=== PATIENT | female | born 1955 | race Caucasian/White ===

== ENCOUNTER 2018-06-09 07:30 | Day surgery (SDC) | payer OTHER, SELFPAY ==
[2018-06-09] VITALS (8 sets, daily range): BP systolic 107–141; BP diastolic 60–79; PULSE 61–79; RESP 14–18; TEMP 36.3–36.6; O2SAT 93–99; BMI 39.1
--- NOTE | 2018-06-09 | PATH_ITS ---
[facility] Accession Number: [id number] . 01 Material submitted: . ASCENDING COLON POLYP AT 80CM . 02 Diagnosis: Ascending Colon, Polyp At 80 CM, Biopsy: Tubular adenoma. [facility]/06/11/2018 . 02 Electronically signed: . Rosmery Isabel MD, Pathologist NPI- [id number] . 01 Gross description: . ASCENDING COLON POLYP AT 80CM: Received in formalin is 1 fragment(s) of lemus, soft tissue measuring 0.8 x 0.4 x 0.3 cm submitted entirely in 1 cassette(s) /CKI /CKI . 02 Pathologist provided ICD-10: D12.2 . 02 CPT . 705220 Performed at: 01 [facility] [address] [place] [address], [place], [place] [id number] MD Ramo Kaur MD Phone: [phone] Performed at: 02 [facility] [place] [address] [place], [place] [id number] MD Rosmery Isabel MD Phone: [phone]
[2018-06-09] MEDS: SODIUM CHLORIDE 0.9% 1,000 ML 200 ML IV (08:15)
--- NOTE | 2018-06-09 08:20 | PM.PREOP ---
Pre-operative Note Interval Note History & Physical reviewed/Exam performed by Physician: Yes Changes to H&P: No H&P completed within 30 days and has changed as indicated here:: Patient seen and examined today. History and physical examination placed on the chart today. Obviously there have been no changes within the last 15 min. Proceed with colonoscopy today as planned. ASA Class (for procedural sedation): II
--- NOTE | 2018-06-09 08:21 | P.HP_ITS ---
History of Present Illness Date Patient Seen: 06/09/18 Time Patient Seen: 08:16 Chief complaint: [id number] SCREENING COLONOSCOPY Narrative: 62-year-old female with family history of colon cancer in her mother who presents for colorectal screening. Her last examination was approximately 6 years ago. She reports that was normal at that time. Recently she has been having more frequent soft bowel movements but no other symptoms. Denies any nausea, vomiting, abdominal pain, unintended weight loss, anorexia, constipation , melena, hematochezia, or bright red blood per rectum. Patient History Medical History Asthma (Acute) Benign atrial arrhythmia (Acute) Benign heart murmur (Acute) Depression (Acute) Family history of colon cancer in mother (Acute) Gastroesophageal reflux disease (Acute) Hypothyroidism (Acute) Obesity (Acute) Obstructive sleep apnea (Acute) Psoriasis (Acute) Surgical History History of cataract removal with insertion of prosthetic lens (Acute) History of colonoscopy (Acute) Hx of rectal sphincterotomy (Acute) Family & Social History Family History: Reviewed 06/09/18 by Juan Daniel Mensah MD Social History: household members spouse Meds Allergies Allergy/AdvReac Type Severity Reaction Status Date / Time Cephalosporins Allergy Unknown Unverified 08/28/17 11:53 [CEPHALOSPORINS] thimerosal AdvReac Verified 06/09/18 08:02 Review of Systems Review of Systems All systems reviewed & are unremarkable except as noted in HPI and below Exam Vital Signs (past 8 hours): - 06/09/18 07:52 Temperature 97.5 F L Pulse Rate 79 Respiratory Rate 15 Blood Pressure 141/79 H Pulse Oximetry 94 Oxygen Delivery Method Room Air Narrative Exam Narrative: Well-nourished well-developed obese female in no acute distress. Alert oriented x3 Sclera nonicteric Regular rate and rhythm currently. Slight grade 2 murmur but no gallops or rubs. Abdomen soft, nondistended, nontender, no masses Extremities show no clubbing or cyanosis Objective Labs Labs: No recent laboratory or radiographic studies for review Assessment & Plan Plan: Assessment/Plan Narrative: 62-year-old female with family history of colorectal cancer. Her last examination was approximately 6 years ago. She presents now with some mild recent change in bowel habits as well. She requires surveillance for colorectal neoplasia. I have recommended colonoscopy. Technical details of the procedure were discussed. Risks, benefits, alternatives were explained. Risks including but not limited to sedation, aspiration, bleeding, pain, missed lesion, incomplete examination, need for further radiographic studies, colonic perforation, need for major abdominal surgery, and all attendant risks of major surgery were explained in detail. All questions were answered to her satisfaction, and she voiced understanding. Consent was placed on the chart. We will proceed as above.
[2018-06-09] MEDS: MIDAZOLAM 5 MG/5 ML VIAL IV (08:46)
[2018-06-09] MEDS: fentaNYL 250 MCG/5 ML INJ IV (08:46)
--- NOTE | 2018-06-09 08:51 | PM.OP.ENDO ---
Operative Date/Time/Diagnoses Date of procedure: 06/09/18 Time of procedure: 08:51 Pre-op diagnosis: Family history of colon cancer and recent change in bowel habits Post-op diagnosis: other (Diverticulosis and right colon polyp) Procedure & Clinicians Study performed: 1. Sedation per surgeon 2. Colonoscopy with hot snare polypectomy Same procedure as scheduled: Yes Indications: 62-year-old female with family history of colon cancer in her mother whose last colonoscopy was 6 years ago approximately. She recently developed change in bowel habits with more frequent soft stool. She requires colorectal screening for possible neoplasia. Colonoscopy is recommended. Surgeon: Juan Daniel Mensah Procedure Notes SCOAP/Timeout: Yes Procedure in detail: After obtaining informed consent, the patient was brought to the GI suite and placed in the left lateral decubitus position on the examination table. After placement of appropriate monitors, the patient was given incremental doses of Versed and Fentanyl until an appropriate level of sedation was achieved. A time out was held per SCOAP protocol. A digital rectal examination was performed and did not reveal any masses or obstructing lesions. The colonoscope was gently passed into the patient's anus and the entire colon navigated to the level of the cecum with minimal difficulty. Terminal ileum was intubated and noted to be grossly normal. Once in the cecum, the scope was withdrawn being sure to go before and beyond all mucosal folds and prominences and get an excellent examination. The findings are noted above. At the level of the rectal vault, the scope was retroflexed and the internal anal canal was examined. The scope was straightened and air aspirated from the colon. The instrument was removed from the patient's body and the procedure was concluded. The patient was allowed to awaken from sedation without difficulty and taken to the post-anesthesia care unit in good condition. Scope withdrawal time: 9:13 min Sedation minutes: 24 Findings: diverticulosis, internal hemorrhoids (Single grade 2 hemorrhoid without inflammation) and polyp Specimen(s): other (Right colon polyp at 80 cm) Complications: none Recommendations: Colonscopy in 5 years, High fiber diet, Will call with biopsy results and Other recommendation (Would recommend next colonoscopy potentially with propofol and anesthesiology services as patient was difficult to sedate in context of sleep apnea) Plan for aftercare: 1. Discharge home Follow up: as needed Disposition: PACU
== END 2018-06-09 10:02 | disposition home or self-care (01) ==
PROVIDERS: Family Provider Family Medicine; PCP Family Medicine; Visit Provider Surgery
PROC: 0DJD8ZZ Inspection of Lower Intestinal Tract, Via Natural or Artificial Opening Endoscopic (ICD-10-PCS; CPT 45378; principal; 2018-06-09 08:45)
DX: D12.2 Benign neoplasm of ascending colon (principal); Z80.0 Family history of malignant neoplasm of digestive organs; K57.30 Diverticulosis of large intestine without perforation or abscess without bleeding; K64.1 Second degree hemorrhoids; J45.909 Unspecified asthma, uncomplicated; I49.9 Cardiac arrhythmia, unspecified; R01.0 Benign and innocent cardiac murmurs; E03.9 Hypothyroidism, unspecified; E66.9 Obesity, unspecified; G47.33 Obstructive sleep apnea (adult) (pediatric)
CPT/HCPCS: 45385; 99152; 99153; J2250; J3010

== ENCOUNTER → 2018-08-11 11:55 | Outpatient (CLI) | payer OTHER, SELFPAY ==
--- NOTE | 2018-08-11 | DI.MG.S_ITS ---
BILATERAL DIGITAL SCREENING MAMMOGRAM 3D/2D WITH CAD: 08/11/2018 CLINICAL: Routine screening. Family history of breast cancer. Comparison is made to exams dated: 07/17/2017 mammogram, 03/26/2016 mammogram, 05/17/2014 mammogram, and 05/11/2013 mammogram - [facility]. There are scattered fibroglandular elements in both breasts. Current study was also evaluated with a Computer Aided Detection (CAD) system. No significant masses, calcifications, or other findings are seen in either breast. There has been no significant interval change. IMPRESSION: NEGATIVE There is no mammographic evidence of malignancy. A 1 year screening mammogram is recommended. This exam was interpreted at Station ID: [id number]. NOTE: For mammograms, a report in lay terms will be sent to the patient. Approximately 15% of breast malignancies will not be visualized mammographically. In the management of a palpable breast mass, a negative mammogram must not discourage biopsy of a clinically suspicious lesion. Electronically Signed By: Ryan henderson/valentín:08/11/2018 17:47:48 letter sent: Normal Exam ACR BI-RADS Category 1: Negative [id number]
== END ==
PROVIDERS: PCP Family Medicine; Visit Provider Family Medicine
DX: Z12.31 Encounter for screening mammogram for malignant neoplasm of breast (principal); Z80.3 Family history of malignant neoplasm of breast
CPT/HCPCS: 77063; 77067

== ENCOUNTER → 2018-10-06 06:40 | Outpatient (CLI) | payer OTHER, SELFPAY ==
--- NOTE | 2018-10-06 | DI.ECHO.S_ITS ---
[facility] +---------+ : : [address] : : : : [id number] : : : : Phone: [phone]+ Echocardiogram Report + + :Name: JEANNA MADERA Study Date: 10/06/2018 Height: 68 in : :[facility] Location: [facility] Weight: 256 lb : : Gender: Female BSA: 2.3 m2 : :: 1955 Age: 62 yrs BP: 120/80 mmHg: :Reason For Study: Mitral Valve- Regurgitation : :Ordering Physician: : :Ivette Glass Performed By: Radha Page : + + Interpretation Summary -Overall this echo shows mild, posteriorly directed mitral regurgitation, possibly secondary to minimal prolapse of the anterior leaflet. This is of no hemodynamic consequences. -Normal left ventricular ejection fraction. -Normal right ventricular size and systolic function. -No other significant valvular abnormalities. -PA pressures could not be measured but the CVP is estimated to be 3 mmHg. -Please note that patient was bradycardic during this exam with either sinus arrhythmia or occasional PACs which is difficult to determine based on this exam. Clinical correlation is recommended. This appears to be have been present on the prior echo as well. -Comparison is made to the prior echo on 06/04/2016. There is no significant change. Procedure: A two-dimensional transthoracic echocardiogram with color flow and Doppler was performed. The study quality was technically adequate. Comparison is made with the echocardiogram of 06/04/2016. The heart rate ranged between 43-71 bpm during the study. Left Ventricle: There is normal left ventricular wall thickness. The left ventricle is normal in size. LVEDD 5.5 cm, LVESD 2.9cm. The ejection fraction is estimated to be 55-60%. This is unchanged compared to the previous study. There are no focal wall motion abnormalities. Diastolic function could not be accurately assessed due to contradictory data. Although the Doppler data suggests normal diastolic function, left atrial size is moderately enlarged. This could indicate a previously elevated left atrial pressure but at this point the Doppler data suggests normal filling pressures. Right Ventricle: The right ventricle is normal in size and function. The right ventricular systolic function is normal. Atria: The left atrium is moderately dilated. The right atrium is mildly dilated. There is no Doppler evidence for an interatrial shunt. Mitral Valve: The mitral valve leaflets appear mildly thickened, but open well. There is mild mitral regurgitation. Aortic Valve: The aortic valve is trileaflet. The aortic valve opens well. No aortic regurgitation is present. Tricuspid Valve: The tricuspid valve is normal in structure and function. There is a trace or physiologic amount of tricuspid regurgitation. Pulmonary artery pressures cannot be estimated because of the lack of a measurable TR jet velocity. Pulmonic Valve: The pulmonic valve is not well visualized. There is a trace or physiologic amount of pulmonic regurgitation. Great Vessels: The aortic root is normal size. The ascending aorta is mildly enlarged. The pulmonary artery is not well visualized, but is probably normal size. The IVC is dilated (diameter is greater than 2.1 cm) yet it collapses greater than 50% with a sniff. This suggests a right atrial pressure of 8 mm Hg. Pericardium/ Pleura There is no pericardial effusion. There is no pleural effusion. MMode/2D Measurements & Calculations LVIDd: 5.5 cm Ao root diam: 3.5 cm LVIDs: 2.9 cm asc Aorta Diam: 3.8 cm FS: 46.8 % EPSS: 0.11 cm IVSd: 0.54 cm LVPWd: 0.67 cm LV knutson. diameter/BSA (cm/m^2): 2.4 LV sys. diameter/BSA (cm/m^2): 1.3 LA A2 area: 25.5 cm2 RA long axis: 5.9 cm LA A4 area: 27.0 cm2 RA area: 21.3 cm2 LA length (vol): 6.1 cm RA vol: 65.4 ml LA vol: 95.8 ml RA : 28.8 ml/m2 LA vol index: 42.2 ml/m2 IVC diam: 2.3 cm RVD1 (basal): 4.6 cm LVAd ap2: 29.6 cm2 TAPSE: 1.9 cm LVLd ap2: 6.6 cm LVAs ap2: 16.7 cm2 LVLs ap2: 6.1 cm Doppler Measurements & Calculations Ao V2 max: 138.2 cm/sec LVOT Max Nnamdi: 79.0 cm/sec Ao V2 mean: 94.3 cm/sec LV V1 max P.5 mmHg Ao max P.6 mmHg LV V1 VTI: 20.2 cm Ao mean P.0 mmHg sev ratio: 0.62 Ao V2 VTI: 32.5 cm MV E max nnamdi: 77.9 cm/sec PA V2 max: 75.8 cm/sec MV A max nnamdi: 42.5 cm/sec PA V2 mean: 54.1 cm/sec MV E/A: 1.8 PA mean P.3 mmHg Med Peak E' Nnamdi: 9.5 cm/sec PA Accel Time: 0.14 sec E/E' med: 8.2 Lat Peak E' Nnamdi: 8.9 cm/sec E/E' lat: 8.7 E/e' average: 8.4 MV dec time: 0.26 sec MV P1/2t: 75.6 msec MV P1/2t max nnamdi: 78.7 cm/sec MVA(P1/2t): 2.9 cm2 Electronically signed by: Dwight Rodriguez M.D. on Reading Physician:10/06/2018 09:46 AM
== END ==
PROVIDERS: PCP Family Medicine; Visit Provider Family Medicine
DX: I34.0 Nonrheumatic mitral (valve) insufficiency (principal); I77.89 Other specified disorders of arteries and arterioles
CPT/HCPCS: 93306

== ENCOUNTER 2018-10-17 09:44 | Outpatient (RCR) | payer OTHER, SELFPAY ==
--- NOTE | 2018-10-17 16:00 | PT.OIE ---
Current Diagnoses Benign paroxysmal vertigo, bilateral (10/17/18) Past Medical History (Last Reviewed 06/09/18 @ 08:18 by Juan Daniel Mensah MD) Asthma (Acute) Benign atrial arrhythmia (Acute) Benign heart murmur (Acute) Depression (Acute) Family history of colon cancer in mother (Acute) Gastroesophageal reflux disease (Acute) Hypothyroidism (Acute) Obesity (Acute) Obstructive sleep apnea (Acute) Psoriasis (Acute) Past Surgical History (Last Reviewed 06/09/18 @ 08:18 by Juan Daniel Mensah MD) History of cataract removal with insertion of prosthetic lens (Acute) History of colonoscopy (Acute) Hx of rectal sphincterotomy (Acute) Provider Visit Care Team Role Provider Type Ivette Glass MD Attending Provider Physician Primary Care Provider Specialty: Family Practice Address: [address] [place] [address] Email: Physical Therapy Initial Evaluation PT-OP-A Visit Information Start: 10/17/18 07:42 Freq: Status: Active Protocol: Document 10/17/18 10:15 AMB (Rec: 10/25/18 11:32 AMB [email or web address]) Out-Patient Physical Therapy Visit Information Visit Information Visit Type Initial Evaluation Visit Start Time 10:15 Visit Stop Time 11:00 Total Visit Minutes 45 Visit Number 1 PT-OP-B Current Condition Start: 10/17/18 07:42 Freq: Status: Active Protocol: Document 10/17/18 10:15 AMB (Rec: 10/25/18 11:32 AMB [email or web address]) Current Condition History of Current Condition Onset Date September 2018 Current Complaints dizziness History of Current Condition Shahram reports she was getting spinning vertigo while getting out of bed for about 2 weeks before going to Dr. Glass. Dr. Glass treated her for BPPV, and the patient has felt better, but not truly 100% yet. She is going on a road trip in 4 days and will be gone for a month. Prior Treatments and Tests BPPV treatment from her PCP Treatment Goals Patient/Caregiver Goals Reduce dizziness Prior Functional Status Baseline Function- ADL's Independent Baseline Function- Mobility Independent Current Functional Impairments (Reported) Functional Limitations- ADL's mild dizziness especially with quick movements of the head and getting out of bed Personal Factors Other Personal Factors That May Effect hypothyroid, history of neck Therapy/Recovery pain PT-OP-C Subjective Start: 10/17/18 07:42 Freq: Status: Active Protocol: Document 10/17/18 10:15 AMB (Rec: 10/25/18 11:32 AMB [email or web address]) Patient Questionnaires Dizziness Handicap Inventory DHI Score 10 DHI Functional Impairment 1 to 19% Impaired (Score 1-19) PT-OP-O Vestibular Start: 10/17/18 07:42 Freq: Status: Active Protocol: Document 10/17/18 10:15 AMB (Rec: 10/25/18 11:34 AMB [email or web address]) Vestibular Assessment Visual Testing Smooth Pursuits Horizontal WFL Smooth Pursuits Vertical WFL Saccades Horizontal WFL Saccades Vertical WFL Gaze Evoked Nystagmus With Fixation Negative Thrust Head Negative Convergence Test WNL DVA (Line Degradation) 3 Positional Testing [place]-Hallpike Negative Right Rolling Test Negative Left Negative Right Comments Vestibular Comments No visible nystagmus seen with room light, however pt more symptomatic to the L, so went ahead and performed Jaskaran on the L x1. PT-OP-T Assessment and Plan Start: 10/17/18 07:42 Freq: Status: Active Protocol: Document 10/17/18 10:15 AMB (Rec: 10/25/18 11:37 AMB [email or web address]) Physical Therapy Assessment Rehab Potential Rehabilitation Potential Excellent Evaluation Complexity Number of Personal Factors/Comorbidities 1-2 Number of Body Systems Impaired 1-2 Clinical Presentation at Evaluation Stable Impairments Impairments Vestibular Goals One Impairment dizziness Short Term Goal (STG) Shahram will get out of bed without dizziness STG Duration 6 weeks Mcfp Goal (LTG) Shahram will be able to turn her head quickly without feeling off balance. LTG Duration 8 weeks Assessment Summary Assessment Shahram attends PT with what is mostly likely previous BPPV that either did not fully resolve, or she still feels a bit off after the BPPV. She was given VOR exercises due to her symptomatic DVA test, and told to follow up with this clinic in a month after her road trip if her symptoms have not fully resolved at that time. Physical Therapy Plan Frequency and Duration Frequency of Treatment 2x/month Duration of Treatment 2 months Plan of Care Start Date 10/17/18 Plan of Care End Date 01/17/19 Therapeutic Interventions Therapeutic Interventions Balance Training Canalithic Repositioning Home Exercise Program Vestibular Rehabilitation Next Visit Focus/Plan Next Note Type Treatment Note Next Visit Plan Reassess Antonio-Hallpike, VOR testing
--- NOTE | 2018-10-17 16:01 | PT.OPPOC ---
Current Diagnoses Benign paroxysmal vertigo, bilateral (10/17/18) Provider Visit Care Team Role Provider Type Ivette Glass MD Attending Provider Physician Primary Care Provider Specialty: Family Practice Address: [address] [place] [address], [id number] Email: Plan Of Care PT-OP-T Assessment and Plan Start: 10/17/18 07:42 Freq: Status: Active Protocol: Document 10/17/18 10:15 AMB (Rec: 10/25/18 11:37 AMB [email or web address]) Physical Therapy Assessment Rehab Potential Rehabilitation Potential Excellent Evaluation Complexity Number of Personal Factors/Comorbidities 1-2 Number of Body Systems Impaired 1-2 Clinical Presentation at Evaluation Stable Impairments Impairments Vestibular Goals One Impairment dizziness Short Term Goal (STG) Shahram will get out of bed without dizziness STG Duration 6 weeks Political Science Chair Goal (LTG) Shahram will be able to turn her head quickly without feeling off balance. LTG Duration 8 weeks Assessment Summary Assessment Shahram attends PT with what is mostly likely previous BPPV that either did not fully resolve, or she still feels a bit off after the BPPV. She was given VOR exercises due to her symptomatic DVA test, and told to follow up with this clinic in a month after her road trip if her symptoms have not fully resolved at that time. Physical Therapy Plan Frequency and Duration Frequency of Treatment 2x/month Duration of Treatment 2 months Plan of Care Start Date 10/17/18 Plan of Care End Date 01/17/19 Therapeutic Interventions Therapeutic Interventions Balance Training Canalithic Repositioning Home Exercise Program Vestibular Rehabilitation Next Visit Focus/Plan Next Note Type Treatment Note Next Visit Plan Reassess [place]-Hallpike, VOR testing Plan of Care Dates Plan of Care Start Date 10/17/18 Plan of Care End Date 01/17/19 Please Sign and Return: I have reviewed this Plan of Care and certify that the skilled therapy services above are required to meet the patient?s needs. Physician Signature Date Printed Name and Credentials Clinical Instructor Signature Printed Name and Credentials
--- NOTE | 2018-12-04 08:07 | PT.OPDS ---
Current Diagnoses Benign paroxysmal vertigo, bilateral (10/17/18) Provider Visit Care Team Role Provider Type Ivette Glass MD Attending Provider Physician Primary Care Provider Specialty: Family Practice Address: [address] [place] [address], [facility] Email: Visit Number Visit Number 1 Discharge Summary PT-OP-B Current Condition Start: 10/17/18 07:42 Freq: Status: Active Protocol: Document 10/17/18 10:15 AMB (Rec: 10/25/18 11:32 AMB [email or web address]) Current Condition History of Current Condition Onset Date September 2018 Current Complaints dizziness History of Current Condition Shahram reports she was getting spinning vertigo while getting out of bed for about 2 weeks before going to Dr. Glass. Dr. Glass treated her for BPPV, and the patient has felt better, but not truly 100% yet. She is going on a road trip in 4 days and will be gone for a month. Prior Treatments and Tests BPPV treatment from her PCP Treatment Goals Patient/Caregiver Goals Reduce dizziness Prior Functional Status Baseline Function- ADL's Independent Baseline Function- Mobility Independent Current Functional Impairments (Reported) Functional Limitations- ADL's mild dizziness especially with quick movements of the head and getting out of bed Personal Factors Other Personal Factors That May Effect hypothyroid, history of neck Therapy/Recovery pain PT-OP-C Subjective Start: 10/17/18 07:42 Freq: Status: Active Protocol: Document 10/17/18 10:15 AMB (Rec: 10/25/18 11:32 AMB [email or web address]) Patient Questionnaires Dizziness Handicap Inventory DHI Score 10 DHI Functional Impairment 1 to 19% Impaired (Score 1-19) PT-OP-O Vestibular Start: 10/17/18 07:42 Freq: Status: Active Protocol: Document 10/17/18 10:15 AMB (Rec: 10/25/18 11:34 AMB [email or web address]) Vestibular Assessment Visual Testing Smooth Pursuits Horizontal WFL Smooth Pursuits Vertical WFL Saccades Horizontal WFL Saccades Vertical WFL Gaze Evoked Nystagmus With Fixation Negative Thrust Head Negative Convergence Test WNL DVA (Line Degradation) 3 Positional Testing Antonio-Hallpike Negative Right Rolling Test Negative Left Negative Right Comments Vestibular Comments No visible nystagmus seen with room light, however pt more symptomatic to the L, so went ahead and performed Jaskaran on the L x1. PT-OP-T Assessment and Plan Start: 10/17/18 07:42 Freq: Status: Active Protocol: Document 12/04/18 08:04 AMB (Rec: 12/04/18 08:07 AMB [email or web address]) Physical Therapy Plan Discharge Physical Therapy Discharge Comments The patient was instructed to call the clinic if she did not feel better after her road trip. It has now been over 6 weeks since she was last seen, and she has not followed up, so she will be discharged at this time. If she needs further workup she would need a new referral, but would be welcome to return.
== END 2018-12-04 13:18 | disposition home or self-care (01) ==
LOC: PHYS 09:44
PROVIDERS: PCP Family Medicine; Visit Provider Family Medicine
DX: H81.13 Benign paroxysmal vertigo, bilateral (principal)
CPT/HCPCS: 97161

== ENCOUNTER → 2019-12-28 17:39 | Outpatient (CLI) | payer MEDICARE, OTHER, SELFPAY ==
--- NOTE | 2019-12-28 | DI.MG.S_ITS ---
BILATERAL DIGITAL SCREENING MAMMOGRAM 3D/2D WITH CAD: 12/28/2019 CLINICAL: Routine screening. Family history of breast cancer. Comparison is made to exams dated: 08/11/2018 mammogram, 07/17/2017 mammogram, and 03/26/2016 mammogram - [facility]. There are scattered fibroglandular elements in both breasts. Current study was also evaluated with a Computer Aided Detection (CAD) system. There is a possible new 5 mm round mass in the left breast at 6 o'clock middle depth. No other significant masses, calcifications, or other findings are seen in either breast. IMPRESSION: INCOMPLETE: NEEDS ADDITIONAL IMAGING EVALUATION The possible new 5 mm round mass in the left breast is indeterminate. Additional views with possible ultrasound are recommended. This exam was interpreted at Station ID: [id number]. NOTE: For mammograms, a report in lay terms will be sent to the patient. Approximately 15% of breast malignancies will not be visualized mammographically. In the management of a palpable breast mass, a negative mammogram must not discourage biopsy of a clinically suspicious lesion. Electronically Signed By: Guillermo snider/valentín:12/29/2019 11:20:44 letter sent: Additional Imaging Needed ACR BI-RADS Category 0: Incomplete [id number]
== END ==
PROVIDERS: PCP Family Medicine; Referring Provider Family Medicine; Visit Provider Family Medicine
DX: Z12.31 Encounter for screening mammogram for malignant neoplasm of breast (principal); Z80.3 Family history of malignant neoplasm of breast
CPT/HCPCS: 77063; 77067

== ENCOUNTER → 2020-01-21 08:39 | Outpatient (CLI) | payer MEDICARE, OTHER, SELFPAY ==
--- NOTE | 2020-01-21 08:55 | DI.MG.S_ITS ---
Patient Name: JEANNA MADERA date: 1955 Sex: F Attending Physician: Maria Luisa Indications: Date: 01/21/2020 08:47 At the request of: JALEN WILEY Procedure: MM special view LT UNILATERAL LEFT DIGITAL DIAGNOSTIC MAMMOGRAM 3D/2D WITH ADDITIONAL VIEWS: 01/21/2020 CLINICAL: Additional evaluation requested from prior study. Comparison is made to exams dated: 12/28/2019 mammogram, 08/11/2018 mammogram, and 07/17/2017 mammogram - [facility]. There are scattered fibroglandular elements in left breast. There is a 4 mm oval low density focal asymmetry in the left breast at 6 o'clock middle depth. This is decreased in size. No sonographic correlate for this abnormality is seen on targeted ultrasound performed on the same day. No other significant masses or calcifications are seen in the breast. IMPRESSION: PROBABLY BENIGN The 4 mm oval low density focal asymmetry in the left breast is probably benign. A follow-up left mammogram in 6 months is recommended to demonstrate stability. This exam was interpreted at Station ID: [id number]. NOTE: For mammograms, a report in lay terms will be sent to the patient. Approximately 15% of breast malignancies will not be visualized mammographically. In the management of a palpable breast mass, a negative mammogram must not discourage biopsy of a clinically suspicious lesion. Electronically Signed By: Guillermo snider/valentín:01/21/2020 11:42:21 letter sent: Followup Recommended ACR BI-RADS Category 3: Probably benign 3343F Continued Report - Page 2 of 2 Patient Name: JEANNA MADERA date: 1955 Sex: F Attending Physician: Maria Luisa Indications: Date: 01/21/2020 08:47 At the request of: JALEN WILEY Procedure: MM special view LT
--- NOTE | 2020-01-21 10:11 | DI.US.S_ITS ---
Patient Name: JEANNA MADERA date: 1955 Sex: F Attending Physician: Maria Luisa Indications: Date: 01/21/2020 10:03 At the request of: JALEN WILEY Procedure: US breast LT limited LIMITED ULTRASOUND OF LEFT BREAST: 01/21/2020 CLINICAL: Patient returns today to evaluate asymmetry in left breast. Comparison is made to exams dated: 01/21/2020 mammogram, 12/28/2019 mammogram, and 08/11/2018 mammogram - [facility]. Ultrasound of the left breast 6-7 o'clock region was performed. House scale images of the real-time examination were reviewed. No significant abnormalities were seen sonographically in the left breast. IMPRESSION: NEGATIVE There is no sonographic evidence of malignancy. There is no abnormality seen in the left breast to correspond with the mammography finding at 6 o'clock. This exam was interpreted at Station ID: [id number]. Electronically Signed By: Guillermo snider/valentín:01/21/2020 11:50:52 Ultrasound BI-RADS: 1 Negative
== END ==
PROVIDERS: PCP Family Medicine; Referring Provider Family Medicine; Visit Provider Family Medicine
DX: R92.8 Other abnormal and inconclusive findings on diagnostic imaging of breast (principal); N64.89 Other specified disorders of breast
CPT/HCPCS: 76642; 77065; G0279

== ENCOUNTER → 2020-07-20 14:40 | Outpatient (CLI) | payer MEDICARE, OTHER, SELFPAY ==
--- NOTE | 2020-07-20 14:43 | DI.MG.S_ITS ---
UNILATERAL LEFT DIGITAL DIAGNOSTIC MAMMOGRAM 3D/2D SHORT-TERM FOLLOW-UP: 07/20/2020 CLINICAL: Short term follow up. Comparison is made to exams dated: 01/21/2020 mammogram, 08/11/2018 mammogram, and 12/28/2019 mammogram - [facility]. There are scattered fibroglandular elements in left breast. The 4 mm oval low density focal asymmetry in the left breast at 6 o'clock middle depth is no longer seen and most likely was a cyst or a lymph node. No other significant masses or calcifications are seen in the breast. IMPRESSION: BENIGN Resolution of previous 4 mm asymmetry in the left breast. There is no mammographic evidence of malignancy. Return to annual mammogram screening schedule is recommended. Findings and recommendations were conveyed to the patient at time of exam. This exam was interpreted at Station ID: [id number]. NOTE: For mammograms, a report in lay terms will be sent to the patient. Approximately 15% of breast malignancies will not be visualized mammographically. In the management of a palpable breast mass, a negative mammogram must not discourage biopsy of a clinically suspicious lesion. Electronically Signed By: Sarina huerta/:07/20/2020 15:43:08 letter sent: Normal Exam ACR BI-RADS Category 2: Benign Finding(s) 3342F
== END ==
PROVIDERS: PCP Family Medicine; Referring Provider Family Medicine; Visit Provider Family Medicine
DX: R92.8 Other abnormal and inconclusive findings on diagnostic imaging of breast (principal)
CPT/HCPCS: 77065; G0279

== ENCOUNTER → 2020-09-21 13:54 | Outpatient (CLI) | payer MEDICARE, OTHER, SELFPAY | PROVIDERS: PCP Family Medicine; Referring Provider Family Medicine; Visit Provider Family Medicine | DX: M85.852 Other specified disorders of bone density and structure, left thigh (principal); Z78.0 Asymptomatic menopausal state; E07.9 Disorder of thyroid, unspecified; Z82.62 Family history of osteoporosis | CPT/HCPCS: 77080 ==

== ENCOUNTER → 2021-02-06 17:25 | Outpatient (CLI) | payer MEDICARE, OTHER, SELFPAY ==
--- NOTE | 2021-02-06 | DI.MG.S_ITS ---
BILATERAL DIGITAL SCREENING MAMMOGRAM 3D/2D WITH CAD: 02/06/2021 CLINICAL: Routine screening. Family history of breast cancer. Comparison is made to exams dated: 07/20/2020 mammogram, 01/21/2020 ultrasound, 12/28/2019 mammogram, 08/11/2018 mammogram, and 01/21/2020 mammogram - [facility]. There are scattered fibroglandular elements in both breasts. Current study was also evaluated with a Computer Aided Detection (CAD) system. No significant masses, calcifications, or other findings are seen in either breast. There has been no significant interval change. IMPRESSION: NEGATIVE There is no mammographic evidence of malignancy. A 1 year screening mammogram is recommended. This exam was interpreted at Station ID: [id number]. NOTE: For mammograms, a report in lay terms will be sent to the patient. Approximately 15% of breast malignancies will not be visualized mammographically. In the management of a palpable breast mass, a negative mammogram must not discourage biopsy of a clinically suspicious lesion. Electronically Signed By: Guillermo snider/valentín:02/07/2021 08:45:11 letter sent: Normal Exam ACR BI-RADS Category 1: Negative 3341F
== END ==
PROVIDERS: PCP Family Medicine; Referring Provider Family Medicine; Visit Provider Family Medicine
DX: Z12.31 Encounter for screening mammogram for malignant neoplasm of breast (principal); Z80.3 Family history of malignant neoplasm of breast
CPT/HCPCS: 77063; 77067

== ENCOUNTER → 2021-06-21 15:44 | Outpatient (CLI) | payer MEDICARE, OTHER, SELFPAY ==
--- NOTE | 2021-06-21 15:48 | DI.ECHO.S_ITS ---
[facility] +---------+ : : [address] [place] [place] : : : : [id number] : : : : Phone: [phone]+ Echocardiogram Report + + :Name: JEANNA MADERA Study Date: 06/21/2021 Height: 67 in : :[facility] ReadingLocation: Weight: 253 lb : : Gender: Female BSA: 2.2 m2 : :: 1955 Age: 65 yrs BP: 139/79 mmHg: :Reason For Study: MITRAL REGURGITATION : :Ordering Physician: SAURABH, : :JALEN Performed By: Cris Holman : :Referring: JALEN WILEY : + + Interpretation Summary 1) Normal left ventricular size and thickness with low normal systolic function (EF 50-55%). 2) Hypokinesis of the mid inferolateral wall can not be excluded due to poor endothelial visualization. Consider limited Echo with contrast (to definitively assess wall motion) or nuclear stress test (to assess for significant ischemic heart disease). 3) Mildly enlarged right ventricle with normal function. 4) There is mild mitral regurgitation. 5) Compared to the Echo done 10/06/2018, mid inferolateral hypokinesis can not be excluded on this study. Otherwise, no significant changes. Procedure: A two-dimensional transthoracic echocardiogram with color flow and Doppler was performed. The study quality was technically adequate. Comparison is made with the echocardiogram of 10/06/2018. The patient was in sinus bradycardia with heart rates between 43-55 bpm during the exam. Left Ventricle: The left ventricle is normal in size and wall thickness. The ejection fraction is estimated to be 50-55%. Hypokinesis of the mid inferolateral wall can not be excluded due to poor endothelial visualization. If there is a concern for ischemic heart disease, recommend limited Echo with contrast or nuclear stress test. Diastolic parameters suggest a pseudonormalization pattern, consistent with probable elevated filling pressures. Right Ventricle: The right ventricle is mildly dilated. The right ventricular systolic function is normal. Atria: The left atrium is moderately dilated. Right atrial size is normal. There is no Doppler evidence for an interatrial shunt. Mitral Valve: The mitral valve is normal in structure and function. There is mild mitral regurgitation. Aortic Valve: The aortic valve is trileaflet. The aortic valve opens well. There is mild aortic valve sclerosis. There is no aortic valve stenosis. No aortic regurgitation is present. Tricuspid Valve: The tricuspid valve is normal in structure and function. There is trace tricuspid regurgitation. Pulmonic Valve: The pulmonic valve leaflets are thin and pliable; valve motion is normal. There is no pulmonic valvular regurgitation. Great Vessels: The aortic root is normal size. The ascending aorta is at the upper limits of normal in size. The IVC is of normal diameter and collapses greater than 50% with a sniff. This suggests a low right atrial pressure of 3 mm Hg. Pericardium/ Pleura There is no pericardial effusion. There is no pleural effusion. MMode/2D Measurements & Calculations LVIDd: 5.3 cm LVOT diam: 2.0 cm LVIDs: 3.3 cm Ao root diam: 3.3 cm FS: 38.3 % asc Aorta Diam: 3.4 cm IVSd: 0.76 cm Ao Arch Diam (Prox Trans): 3.0 cm LVPWd: 0.77 cm LV knutson. diameter/BSA (cm/m^2): 2.4 LV sys. diameter/BSA (cm/m^2): 1.5 LA A2 area: 26.6 cm2 RA long axis: 5.6 cm LA A4 area: 24.5 cm2 RA area: 18.8 cm2 LA length (vol): 5.8 cm RA vol: 54.1 ml LA vol: 95.7 ml RA : 24.2 ml/m2 LA vol index: 42.8 ml/m2 IVC diam: 1.5 cm RVD1 (basal): 4.4 cm TAPSE: 1.8 cm Doppler Measurements & Calculations Ao V2 max: 188.6 cm/sec LVOT Max Nnamdi: 104.3 cm/sec Ao V2 mean: 125.7 cm/sec LV V1 max P.4 mmHg Ao max P.2 mmHg LV V1 VTI: 25.5 cm Ao mean P.2 mmHg JOLYNN(I,D): 1.8 cm2 Ao V2 VTI: 46.0 cm JOLYNN(V,D): 1.8 cm2 sev ratio: 0.55 JOLYNN indexed to BSA (cm^2/m^2): 0.80 MV E max nnamdi: 98.7 cm/sec PA V2 max: 85.0 cm/sec MV A max nnamdi: 58.9 cm/sec PA V2 mean: 60.3 cm/sec MV E/A: 1.7 PA mean P.6 mmHg Med Peak E' Nnamdi: 5.7 cm/sec PA pr(Accel): 17.3 mmHg E/E' med: 17.3 Lat Peak E' Nnamdi: 8.2 cm/sec E/E' lat: 12.1 E/e' average: 14.7 MV dec time: 0.28 sec SV(LVOT): 81.9 ml Reading Physician:05:34 PM
== END ==
PROVIDERS: PCP Family Medicine; Referring Provider Family Medicine; Visit Provider Family Medicine
DX: I08.0 Rheumatic disorders of both mitral and aortic valves (principal)
CPT/HCPCS: 93306